=== PATIENT | female | born 1945 | race Caucasian/White ===

== ENCOUNTER → 2016-11-08 | Outpatient (CLI) | payer BC ==
[~2016-11-08] MED LIST: ADVIN50/60 INH; ALBU0.5N2 NEB; ALBU1AER9 INH; AMLO2.5T PO; ASPCH81X PO; ATOR-22 PO; CHOL100010 PO; FURO-85 PO; MONT1TAB3 PO; MULTCAP94 PO; PRLSR20 PO; TAMO20TA9 PO
--- NOTE | 2016-11-08 15:12 | MAMMOGRAPHY REPORT ---
BILATERAL DIGITAL DIAGNOSTIC MAMMOGRAM TOMOSYNTHESIS WITH CAD: 11/08/2016 CLINICAL HISTORY: 70-year-old woman presents for bilateral screening mammography. She is status pos t ultrasound-guided core biopsy and subsequent excisional biopsy in the left upper outer anterior br east for biopsy proven lobular neoplasia in November 2015. TECHNIQUE: Bilateral breast tomosynthesis in addition to standard 2D mammography was performed. A r epeat right MLO 2-D view was obtained to include more posterior tissue. Spot magnification left CC and ML views were obtained. Current study was also evaluated with a Computer Aided Detection (CAD) system. COMPARISON: Comparison is made to exams dated: 05/11/2016 mammogram, 11/20/2015 localization, 6 ultrasound biopsy, 10/06/2015 mammogram, 09/25/2015 ultrasound, and 09/11/2015 mammogram - [facility]. BREAST COMPOSITION: There are scattered areas of fibroglandular density in both breasts. FINDINGS: There is expected architectural distortion and associated surgical clips in the upper out er anterior left breast, at the site of prior excisional biopsy. There are benign appearing rodlike and rim calcifications throughout the left upper outer quadrant. There is a stable lobulated mass with associated coarse calcification in the lower inner quadrant of the left breast. There is a new ly visualized faint cluster of amorphous microcalcifications in the approximate 9:00 to 10:00 middle to posterior left breast for which additional spot magnification views were obtained. On the spot magnification views, the microcalcifications are amorphous in morphology, measuring 7 mm in diameter . No obvious associated mass or architectural distortion. These are indeterminate, warranting furt her evaluation with tissue sampling. No new suspicious mass, architectural distortion or cluster of microcalcifications is seen within th e right breast. IMPRESSION: ACR BI-RADS CATEGORY 4B: INTERMEDIATE SUSPICION FOR MALIGNANCY 1. Left breast stereotactic guided biopsy is recommended for a newly visualized 7 mm cluster of demetria rphous microcalcifications in the approximate 9:00 to 10:00 breast. 2. Otherwise stable postsurgical changes in the upper outer quadrant of the left breast with no oth er suspicious abnormality identified. 3. Stable mammographic appearance of the right breast, without mammographic evidence of malignancy. These results and recommendations were discussed with the patient the time of the exam. She claire hargrove scheduled the biopsy prior to leaving our department. Approximately 10% of breast cancers are not detected with mammography. A negative mammographic repor t should not delay biopsy if a clinically suggestive mass is present. Irina Mcneill M.D. ay/:11/08/2016 11:23:37 Paving Foreman: Lili JACOBSON(R)(M), [facility] letter sent: Abnormal 4/5 BI-RADS Code: ACR BI-RADS Category 4B: Intermediate Suspicion For Malignancy
== END | disposition home or self-care (01) ==
LOC: C.MAMM 10:43
PROVIDERS: ATTEND Nurse Practitioner
DX: D05.02 Lobular carcinoma in situ of left breast (principal); Z98.890 Other specified postprocedural states; R92.0 Mammographic microcalcification found on diagnostic imaging of breast

== ENCOUNTER → 2016-11-23 | Outpatient (CLI) | payer BC ==
--- NOTE | 2016-11-23 09:36 | Discharge Instructions ---
Discharge Instructions Procedure Procedure Date: November 23, 2016. Reason for visit: Left Calcifications/On Aspirin. Discharge Discharge Date: November 23, 2016. Discharge Diagnosis: status post breast biopsy Instructions Activity Recommendations: Additional Limitations (see below) Return to School/Work: no limitations Recommended Home Diet: No Limitations Provider Instructions: ACTIVITY RECOMMENDATIONS: * No lifting, pushing, pulling or exercising the affected side for three days. RETURN TO SCHOOL/WORK: * You may return to work/school after the procedure, but do not perform any strenuous activities for 24 to 48 hours. MEDICATIONS: * Tylenol (two 325 mg) every four to six hours if needed for mild pain (if not allergic to Tylenol). DIET: * Resume previous diet. SPECIAL CARE INSTRUCTIONS: * Keep biopsy site dry for 24 hours. May shower after 24 hours, but do not soak (bathe) incision. * May remove Tegaderm (plastic patch) tomorrow AFTER showering. * Leave the steri-strips on for one week. Allow the steri-strips to fall off by themselves. If not off after one week, you may remove them. You may place a Bandaid crosswise over the strips, if desired. * Apply ice 10 minutes on and 10 minutes off as needed. * Wear a bra at bedtime to sleep more comfortably for 2-3 days. * Your referring physician should have the results after approximately 5 to 7 business days. * Call for unusual bleeding, fever, drainage, etc or if you have any questions call during normal business hours or after hours call Dr Franz, [phone]. FOLLOW UP VISIT: Follow-up with Referring Physician as scheduled. Allergies Coded Allergies: Penicillins (Verified Allergy, Unknown, ? A CHILD, 03/21/16) Todd Sen Recommendations: Call your doctor if: * Temperature above 101 degrees * Pain not relieved by pain medicine ordered * There is increased drainage or redness from any incision * You have any unanswered questions or concerns. Your Doctors Instructions noted above were prepared by provider Juana Franz. Patient Signature Section: Patient Instructions Signature Page Louise Umair Patient (or Guardian) Signature/Date: I have read and understand the instructions given to me by my caregivers. Caregiver/RN/Doctor Signature/Date: The above-named patient and/or guardian has received patient instructions on this date. + Original Patient Signature Page (only) stays with chart. Please make copy for patient.
--- NOTE | 2016-11-23 12:59 | MAMMOGRAPHY REPORT ---
UNILATERAL LEFT DIGITAL DIAGNOSTIC MAMMOGRAM: 11/23/2016 CLINICAL HISTORY: Status post left breast stereotactic biopsy. TECHNIQUE: Left CC and ML views were obtained. COMPARISON: Comparison is made to exams dated: 11/08/2016 mammogram, 05/11/2016 mammogram, 10/06/2015 ma mmogram, 09/11/2015 mammogram, and 01/21/2013 mammogram - [facility]. BREAST COMPOSITION: There are scattered areas of fibroglandular density in the left breast. FINDINGS: A preprocedural left ML view was obtained for biopsy planning purposes. Postprocedural l eft CC and ML views were also obtained, which shows a new biopsy marker clip at the site of the biop sied calcifications in the left upper inner quadrant. A small hematoma is seen at the biopsy site w hich measures 15 mm on the ML view. IMPRESSION: POST PROCEDURE IMAGING FOR MARKER PLACEMENT New biopsy marker clip status post left breast stereotactic biopsy. Pathology results are pending. Approximately 10% of breast cancers are not detected with mammography. A negative mammographic repor t should not delay biopsy if a clinically suggestive mass is present. Juana Franz M.D. /:11/23/2016 09:58:16 Brand Mgr: Lili Joaquin, [facility] BI-RADS Code: Post Procedure Imaging For Marker Placement
--- NOTE | 2016-11-23 12:59 | MAMMOGRAPHY REPORT ---
STEREOTACTIC GUIDED BIOPSY LEFT BREAST: 11/23/2016 CLINICAL HISTORY: Indeterminate cluster of calcifications in the left medial breast. PATIENT CONSENT: The procedure, risks, benefits, and alternatives of stereotactic biopsy with clip p lacement were discussed with the patient, and verbal and written consent was obtained. The increase d risk of bleeding as the patient is on baby aspirin was discussed with the patient. A timeout was performed immediately prior to the procedure. PROCEDURE DESCRIPTION: With stereotactic guidance, aseptic technique, and lidocaine as a local anest hetic (1% lidocaine to anesthetize the skin and 1% lidocaine with epinephrine to anesthetize the jesse per tissues), the calcifications of concern were sampled multiple times with a 9-gauge vacuum-assist ed biopsy needle (ApiFix). The path of approach was medial. The specimen radiograph demonstra tay calcifications to be present in the samples. A metallic marker clip was placed at the biopsy si te. This was confirmed on postprocedure mammograms. Direct pressure was applied at the biopsy site and hemostasis was readily achieved. The patient tolerated the procedure without complication. Sh e was given wound care instructions. COMPARISON: Comparison is made to exams dated: 11/08/2016 mammogram, 05/11/2016 mammogram, 11/20/2015 s pecimen, 11/20/2015 localization, 10/06/2015 ultrasound biopsy, and 10/06/2015 mammogram - [facility]. IMPRESSION: STEREOTACTIC GUIDED BIOPSY Stereotactic biopsy of indeterminate calcifications in the left medial breast, with clip placement. The patient will receive pathology results from her referring provider. Juana Franz M.D. /:11/23/2016 09:44:56 Clinical Services Director: Lili Joaquin, [facility]
== END | disposition home or self-care (01) ==
LOC: C.MAMM 08:48
PROVIDERS: ATTEND Internal Medicine Hematology & Oncology
DX: R92.0 Mammographic microcalcification found on diagnostic imaging of breast (principal); N60.22 Fibroadenosis of left breast

== ENCOUNTER → 2017-04-03 | Outpatient (CLI) | payer BC ==
[~2017-04-03] MED LIST changes: +TAMO20TA47 PO; -TAMO20TA9 PO
[2017-04-03 13:33] LABS: BASO % 1.1 %; BASO ABS # 0.06 K/uL (0-0.2); COMPLETE YES; EOS % 1.7 %; HEMATOCRIT 35.8 % (37-47); LYMPH % 34.9 %; LYMPH ABS # 1.88 K/uL (1.2-3.4); MEAN CELL VOLUME 92.7 fL (80-100); MEAN CORPUSCULAR HGB CONC 31.3 g/dl (32-36); MEAN PLATELET VOLUME 11.9 fL (7.4-10.4); MONO % 7.4 %; NEUT % 54.9 %; PLATELET COUNT 239 K/uL (130-400); RED BLOOD COUNT 3.86 M/uL (4.2-5.4); WHITE BLOOD COUNT 5.39 K/uL (4.8-10.8)
[2017-04-03 13:59] LABS: URINE PROTIEN/CREAT RATIO 0.4 (0-0.2); URINE TOTAL PROTEIN 10.6 mg/dl (0-11.9)
[2017-04-03 14:19] LABS: CHOLESTEROL/HDL RATIO 1.9; THYROID STIMULATING HORMONE 3.23 uIu/ml (0.300-4.500)
== END | disposition home or self-care (01) ==
LOC: C.LABBC 11:34
PROVIDERS: ATTEND Internal Medicine Geriatric Medicine
DX: J45.909 Unspecified asthma, uncomplicated (principal); I12.9 Hypertensive chronic kidney disease with stage 1 through stage 4 chronic kidney disease, or unspecified chronic kidney disease; M85.80 Other specified disorders of bone density and structure, unspecified site; G47.33 Obstructive sleep apnea (adult) (pediatric); N18.9 Chronic kidney disease, unspecified; E78.5 Hyperlipidemia, unspecified; E55.9 Vitamin D deficiency, unspecified; E11.29 Type 2 diabetes mellitus with other diabetic kidney complication

== ENCOUNTER → 2017-07-13 | Outpatient (CLI) | payer BC ==
[~2017-07-13] MED LIST changes: -TAMO20TA47 PO; +TAMO20TA9 PO
[2017-07-13 13:54] LABS: BASO % 0.7 %; BASO ABS # 0.04 K/uL (0-0.2); EOS % 1.2 %; EOS ABS # 0.07 K/uL (0-0.5); HEMATOCRIT 35.8 % (37-47); HEMOGLOBIN 11.4 g/dL (12.0-16.0); IG# 0.01 K/uL (0.00-0.02); LYMPH % 22.7 %; LYMPH ABS # 1.37 K/uL (1.2-3.4); MEAN CELL VOLUME 91.3 fL (80-100); MEAN CORPUSCULAR HEMOGLOBIN 29.1 pg (25-34); MEAN CORPUSCULAR HGB CONC 31.8 g/dl (32-36); MEAN PLATELET VOLUME 11.9 fL (7.4-10.4); MONO % 7.3 %; MONO ABS # 0.44 K/uL (0.11-0.59); NEUT % 67.9 %; PLATELET COUNT 253 K/uL (130-400); RED CELL DISTRIBUTION WIDTH CV 15.2 % (11.5-14.5); RED CELL DISTRIBUTION WIDTH SD 50.7 fL (36.4-46.3); WHITE BLOOD COUNT 6.03 K/uL (4.8-10.8)
[2017-07-13 14:05] LABS: ALBUMIN 3.6 gm/dl (3.4-5.0); ALT/SGPT 18 U/L (12-78); AST/SGOT 13 U/L (15-37); BLOOD UREA NITROGEN 11 mg/dl (7-18); CALCIUM 9.4 mg/dl (8.5-10.1); CARBON DIOXIDE 26 mmol/L (21-32); CREATININE 1.46 mg/dl (0.60-1.20); GLUCOSE 114 mg/dl (70-99); POTASSIUM 4.1 mmol/L (3.5-5.1); SODIUM 139 mmol/L (136-145)
[2017-07-13 14:08] LABS: ALKALINE PHOSPHATASE 70 U/L (45-117); TOTAL PROTEIN 7.3 gm/dl (6.4-8.2)
[2017-07-13 14:21] LABS: HEMOGLOBIN A1C 6.2 % (4.5-5.6)
== END | disposition home or self-care (01) ==
LOC: C.LABBC 10:49
PROVIDERS: ATTEND Internal Medicine Hematology & Oncology
DX: D05.02 Lobular carcinoma in situ of left breast (principal); N18.9 Chronic kidney disease, unspecified; E55.9 Vitamin D deficiency, unspecified; D64.9 Anemia, unspecified; E11.29 Type 2 diabetes mellitus with other diabetic kidney complication; Z11.59 Encounter for screening for other viral diseases

== ENCOUNTER → 2018-02-14 | Outpatient (CLI) | payer BC ==
[2018-02-14 17:20] LABS: BASO % 0.5 %; BASO ABS # 0.04 K/uL (0-0.2); EOS % 1.1 %; EOS ABS # 0.08 K/uL (0-0.5); HEMATOCRIT 37.2 % (37-47); IG# 0.01 K/uL (0.00-0.02); LYMPH % 27.2 %; LYMPH ABS # 2.01 K/uL (1.2-3.4); MEAN CELL VOLUME 90.5 fL (80-100); MEAN CORPUSCULAR HEMOGLOBIN 29.2 pg (25-34); MEAN CORPUSCULAR HGB CONC 32.3 g/dl (32-36); MEAN PLATELET VOLUME 12.2 fL (7.4-10.4); MONO % 6.5 %; MONO ABS # 0.48 K/uL (0.11-0.59); NEUT % 64.6 %; NEUT ABS # 4.76 K/uL (1.4-6.5); PLATELET COUNT 222 K/uL (130-400); RED CELL DISTRIBUTION WIDTH CV 15.4 % (11.5-14.5); WHITE BLOOD COUNT 7.38 K/uL (4.8-10.8)
[2018-02-14 17:27] LABS: ALBUMIN 3.8 gm/dl (3.4-5.0); ALKALINE PHOSPHATASE 63 U/L (45-117); ALT/SGPT 19 U/L (12-78); AST/SGOT 20 U/L (15-37); BLOOD UREA NITROGEN 12 mg/dl (7-18); CALCIUM 9.5 mg/dl (8.5-10.1); CARBON DIOXIDE 26 mmol/L (21-32); CREATININE 1.62 mg/dl (0.60-1.20); GLUCOSE 97 mg/dl (70-99); POTASSIUM 4.1 mmol/L (3.5-5.1); SODIUM 139 mmol/L (136-145); TOTAL PROTEIN 7.6 gm/dl (6.4-8.2)
== END | disposition home or self-care (01) ==
LOC: C.LABBC 14:13
PROVIDERS: ATTEND Internal Medicine Hematology & Oncology
DX: D05.02 Lobular carcinoma in situ of left breast (principal)